=== PATIENT | female | born 1940 ===

== ENCOUNTER 2022-06-14 06:20 | Day surgery (SDC) | payer OTHER ==
[~2022-06-14] VITALS: Ht 152.4 cm; Wt 45.4 kg
[2022-06-14] MEDS ORDERED: DUI500 PO (12:46)
[2022-06-14] MEDS ORDERED: ULTRACET PO (12:46)
== END 2022-06-14 15:10 | disposition home or self-care (01) ==
LOC: CIR.AMB 06:20
PROVIDERS: ATTEND Orthopaedic Surgery
DX: S52.032A Displaced fracture of olecranon process with intraarticular extension of left ulna, initial encounter for closed fracture (principal); M80.00XA Age-related osteoporosis with current pathological fracture, unspecified site, initial encounter for fracture; Z20.822 Contact with and (suspected) exposure to COVID-19
CPT/HCPCS: 20902; 24000; 24685; L8699